=== PATIENT | female | born 1930 | race Two or more races ===

== ENCOUNTER 2017-06-20 10:42 | Observation (INO) | payer MEDICARE ==
[~2017-06-20] VITALS: Ht 157.5 cm; Wt 71.2 kg
[2017-06-20] MEDS ORDERED: CLONIDINE HCL 0.1 MG TAB PO ONE (11:45)
[2017-06-20] MEDS ORDERED: ONDANSETRON HCL 4 MG ORAL DISINTEGRATING TAB PO ONE ×2 (11:45)
--- NOTE | 2017-06-20 13:00 | Diagnostic Imaging Report ---
EXAMINATION: CT of the face HISTORY: Chronic sinusitis unresponsive to antibiotics COMPARISON: None available TECHNIQUE: Multidetector helical axial images were acquired through the face without contrast and were reconstructed in bone and soft tissue algorithms. Images were viewed in multiplanar format. FINDINGS: Bones: Mild degenerative changes of the bilateral TMJs. Facial soft tissues: Unremarkable. Paranasal sinuses and drainage pathways: The frontal, ethmoidal, sphenoid and maxillary sinuses are clear. The ostiomeatal units, fronto-nasal and spheno-ethmoidal recesses are clear. Orbits contents: Unremarkable. Nasal septum: Midline. Anatomic variations: No significant anatomic variations. Dentition: No acute abnormality of the visualized teeth. IMPRESSION: The paranasal sinuses and drainage pathways are clear. No evidence of sinusitis. Signed by: Dr. Mnoserrat Layne M.D. on 06/20/2017 12:57 PM
[2017-06-20 13:01] LABS: BASOPHILS # (AUTO) 0.1 (0.0-0.1); BASOPHILS % 0.7 % (0.0-1.0); EOSINOPHILS % 0.1 % (0.0-6.0); HEMATOCRIT 43.4 % (34.2-44.1); HEMOGLOBIN 13.7 g/dL (12.0-16.0); MEAN CORPUSCULAR HEMOGLOBIN 27.6 pg (28-32); MEAN CORPUSCULAR HGB CONC 31.6 g/dL (31-35); MEAN CORPUSCULAR VOLUME 87.5 fL (81-99); MONOCYTES # (AUTO) 0.2 (0.2-0.8); MONOCYTES % 2.2 % (4.4-11.3); NEUTROPHILS # (AUTO) 7.2 (2.1-6.9); NEUTROPHILS % 84.4 % (38.7-80.0); PLATELET COUNT 93 x10e3/uL (140-360); RED BLOOD COUNT 4.96 x10e6/uL (3.6-5.1); RED CELL DISTRIBUTION WIDTH 15.1 % (11.7-14.4)
[2017-06-20 13:14] LABS: ALANINE AMINOTRANSFERASE 11 IU/L (0-55); ALBUMIN/GLOBULIN RATIO 0.9 (0.8-2.0); ALKALINE PHOSPHATASE 100 IU/L (40-150); ANION GAP 17.7 mmol/L (8-16); BLOOD UREA NITROGEN 12 mg/dL (7-26); BUN/CREATININE RATIO 14 (6-25); CALCIUM 9.5 mg/dL (8.4-10.2); CARBON DIOXIDE 23 mmol/L (22-29); CHLORIDE 103 mmol/L (98-107); CREATININE, SERUM 0.85 mg/dL (0.57-1.11); EST GLOMERULAR FILTRATION RATE > 60 ML/MIN (60-); GLUCOSE 128 mg/dL (74-118); POTASSIUM 4.7 mmol/L (3.5-5.1); SODIUM 139 mmol/L (136-145)
[2017-06-20] MEDS ORDERED: FAMOTIDINE 20 MG/2 ML VIAL IV STA (13:36)
[2017-06-20] MEDS ORDERED: SODIUM CHLORIDE 0.9% 1000ML 1,000 ML IV STA (13:36)
[2017-06-20] MEDS: CLONIDINE HCL 0.1 MG TAB PO ONE ×2 (14:07→15:35)
[2017-06-20 14:51] LABS: BILIRUBIN,URINE NEGATIVE (NEGATIVE); CLARITY,URINE CLEAR (CLEAR); COLOR,URINE YELLOW (YELLOW); KETONES,URINE 2+ (NEGATIVE); LEUKOCYTE ESTERASE ,URINE NEGATIVE (NEGATIVE); NITRITE,URINE NEGATIVE (NEGATIVE); PROTEIN,URINE DIPSTICK 2+ (NEGATIVE); URINE UROBILINOGEN 0.2 mg/dL (0.2 - 1)
[2017-06-20 14:56] LABS: EPITHELIAL CELLS,URINE FEW /LPF
[2017-06-20 14:57] LABS: MUCUS,URINE MODERATE (RARE)
--- NOTE | 2017-06-20 15:03 | Diagnostic Imaging Report ---
PROCEDURE:X-RAY ABDOMEN, ACUTE SERIES COMPARISON:None. INDICATIONS:VOMITING FINDINGS: BOWEL GAS PATTERN:Non-specific bowel gas pattern. Moderate volume of stool within descending colon. FREE AIR:None. CALCIFICATIONS:Vascular calcifications.. LUNGS:Mild diffuse coarsening of the pulmonary interstitium bilaterally. Mild prominence of the central pulmonary vasculature bilaterally. MEDIASTINUM:Median sternotomy wires. The cardiac silhouette is moderately enlarged. PLEURA:No pleural effusion or pneumothorax. OTHER:Degenerative changes of the thoracolumbar spine. The vascular calcifications. CONCLUSION: Nonspecific, nonobstructive bowel gas pattern. Mild pulmonary venous congestion. Govind Yao M.D. Dictated by: Govind Yao M.D. on 06/20/2017 at 15:03 Electronically approved by: Govind Yao M.D. on 06/20/2017 at 15:03
[2017-06-20] MEDS ORDERED: SODIUM CHLORIDE FLUSH 10 ML SYR INJ PRN (16:45)
[2017-06-20] MEDS ORDERED: HYDRALAZINE HCL 20 MG/ML VIAL IV PRN (16:45)
[2017-06-20] MEDS ORDERED: ONDANSETRON HCL INJ 2 MG/ML VIAL IV PRN (16:45)
--- OUTSIDE RECORDS SUMMARY | 2017-06-20 17:04 | XMS REPORT ---
Author [facility] Address Unknown Phone Unavailable Care Team Providers Care Mine Safety Manager Name Role Phone CAROLINA LE Unavailable Unavailable Problems This patient has no known problems. Allergies, Adverse Reactions, Alerts This patient has no known allergies or adverse reactions. Medications This patient has no known medications. Results Test Description Test Time Test Comments Text Results Atomic Results Result Comments ABDOMEN ACUTE SERIES W/PA CXR [place] [address] Patient Name: YOHAN LESTER MR #: [id number] : 1930 Age/Sex: 87/F Req #: [id number] Adm Physician: Ordered by: CAROLINA LE MD Report #: [id number] Location: ER Room/Bed: Procedure: [id number] DX/ABDOMEN ACUTE SERIES W/PA CXR Exam Date: 06/20/17 Exam Time: 1440 REPORT STATUS: Signed PROCEDURE : X-RAY ABDOMEN, ACUTE SERIES COMPARISON: None. INDICATIONS: VOMITING FINDINGS: BOWEL GAS PATTERN: Non-specific bowel gas pattern. Moderate volume of stool within descending colon. FREE AIR: None. CALCIFICATIONS: Vascular calcifications.. LUNGS: Mild diffuse coarsening of the pulmonary interstitium bilaterally. Mild prominence of the central pulmonary vasculature bilaterally. MEDIASTINUM: Median sternotomy wires. The cardiac silhouette is moderately enlarged. PLEURA: No pleural effusion or pneumothorax. OTHER: Degenerative changes of the thoracolumbar spine. The vascular calcifications. CONCLUSION: Nonspecific, nonobstructive bowel gas pattern. Mild pulmonary venous congestion. Govind Selby M.D. Dictated by: Govind Selby M.D. on 06/20/2017 at 15:03 Electronically approved by : Govind Selby M.D. on 06/20/2017 at 15:03 Dictated By: GENNARO SELBY MD, MD 1503 COPY TO: CAROLINA LE MD CT MAXIO FAC/PARANAS WO [place] [address] Patient Name: YOHAN LESTER MR #: [id number] : 1930 Age/Sex: 87/F Req #: [id number] Adm Physician: Ordered by: CAROLINA LE MD Report #: [id number] Location: ER Room/Bed: Procedure: [id number] CT/CT MAXIO FAC/PARANAS WO Exam Date: 06/20/17 Exam Time: 1150 REPORT STATUS: Signed EXAMINATION: CT of the face HISTORY: Chronic sinusitis unresponsive to antibiotics COMPARISON: None available TECHNIQUE: Multidetector helical axial images were acquired through the face without contrast and were reconstructed in bone and soft tissue algorithms. Images were viewed in multiplanar format. FINDINGS: Bones: Mild degenerative changes of the bilateral TMJs. Facial soft tissues: Unremarkable. Paranasal sinuses and drainage pathways: The frontal, ethmoidal, sphenoid and maxillary sinuses are clear. The ostiomeatal units, fronto-nasal and spheno-ethmoidal recesses are clear. Orbits contents: Unremarkable. Nasal septum: Midline. Anatomic variations: No significant anatomic variations. Dentition: No acute abnormality of the visualized teeth. IMPRESSION : The paranasal sinuses and drainage pathways are clear. No evidence of sinusitis. Signed by: Dr. Baldo Layne M.D. on 06/20/2017 12:57 PM Dictated By: BALDO LAYNE MD [id number] COPY TO: CAROLINA LE MD
[2017-06-20 18:08] VITALS: BP 164/81
[2017-06-20 19:00] VITALS: BP 164/81
[2017-06-20] MEDS ORDERED: MELOXICAM7.5 MG PO (19:00)
[2017-06-20] MEDS ORDERED: OMEPRAZOLE40 MG (19:00)
[2017-06-20] MEDS ORDERED: CRESTOR10 MG (19:00)
[2017-06-20] MEDS ORDERED: PENTOXIFYLLINE400 MG PO (19:00)
[2017-06-20] MEDS ORDERED: LATANOPROST2.5 ML OP (19:00)
[2017-06-20] MEDS ORDERED: METOPROLOL SUCC25 MG (19:00)
[2017-06-20 19:04] VITALS: BP 164/81
[2017-06-20 20:00] VITALS: BP 192/91
[2017-06-21] VITALS (9 sets, daily range): BP systolic 122–181; BP diastolic 42–81
[2017-06-21 05:58] LABS: BASOPHILS # (AUTO) 0.1 (0.0-0.1); BASOPHILS % 0.7 % (0.0-1.0); EOSINOPHILS # (AUTO) 0.1 (0.0-0.4); EOSINOPHILS % 1.5 % (0.0-6.0); HEMATOCRIT 34.7 % (34.2-44.1); LYMPHOCYTES # (AUTO) 2.7 (1.0-3.2); LYMPHOCYTES % 37.8 % (18.0-39.1); MEAN CORPUSCULAR HEMOGLOBIN 27.8 pg (28-32); MEAN CORPUSCULAR HGB CONC 31.7 g/dL (31-35); MEAN CORPUSCULAR VOLUME 87.6 fL (81-99); MONOCYTES # (AUTO) 0.6 (0.2-0.8); MONOCYTES % 8.8 % (4.4-11.3); NEUTROPHILS # (AUTO) 3.6 (2.1-6.9); NEUTROPHILS % 50.9 % (38.7-80.0); PLATELET COUNT 171 x10e3/uL (140-360); RED BLOOD COUNT 3.96 x10e6/uL (3.6-5.1); RED CELL DISTRIBUTION WIDTH 14.9 % (11.7-14.4)
[2017-06-21 06:18] LABS: ANION GAP 11.5 mmol/L (8-16); BLOOD UREA NITROGEN 12 mg/dL (7-26); BUN/CREATININE RATIO 15 (6-25); CALCIUM 8.7 mg/dL (8.4-10.2); CARBON DIOXIDE 25 mmol/L (22-29); CHLORIDE 107 mmol/L (98-107); CREATININE, SERUM 0.81 mg/dL (0.57-1.11); EST GLOMERULAR FILTRATION RATE > 60 ML/MIN (60-); GLUCOSE 83 mg/dL (74-118); POTASSIUM 3.5 mmol/L (3.5-5.1); SODIUM 140 mmol/L (136-145)
[2017-06-21 11:57] LABS: CHOL/HDL RATIO 2.5 (3.0-3.6)
[2017-06-21] MEDS ORDERED: METOPROLOL SUCCINATE 25 MG TAB XL PO SCH (12:00)
--- NOTE | 2017-06-21 14:14 | History and Physical ---
PRIMARY CARE PHYSICIAN: Dr. Partida. CHIEF COMPLAINT: Elevated blood pressure. HISTORY OF PRESENT ILLNESS: This is an 87-year-old woman with a history of hypertension who also had upper respiratory infection problem/sinus discomfort, has been seeing her primary care doctor. Now when she went to see her doctor, her blood pressure was elevated. Her blood pressure was above 200. She was sent to the hospital for management. Here, patient's blood pressure was 217/98 and she is admitted for further evaluation and management. PAST MEDICAL HISTORY: Hypertension, sinusitis, hyperlipidemia, and GERD. PAST SURGICAL HISTORY: Unknown. ALLERGIES: PER ELECTRONIC MEDICAL RECORDS. FAMILY HISTORY/SOCIAL HISTORY: The patient is . She has 2 children. No alcohol, illicits, or cigarettes. MEDICATIONS: Per electronic medical records. REVIEW OF SYSTEMS: Denies any dizziness or chest pain. Denies any shortness of breath. PHYSICAL EXAMINATION VITAL SIGNS: Reviewed. GENERAL: A tired-appearing woman, resting in bed. HEENT: Anicteric. Pupils reactive to light. No oral lesions. CARDIOVASCULAR: Normal S1 and S2. LUNGS: Moderate breath sounds. ABDOMEN: Soft, nontender, and nondistended. EXTREMITIES: No edema or calf tenderness. NEUROLOGIC: Alert and oriented x 3. She moves all extremities. She has no apparent deficits. SKIN: Dry. PSYCHIATRIC: Normal affect. LABS: Reviewed. MEDICATIONS: Reviewed. ASSESSMENT AND PLAN: An 87-year-old woman with; 1. Hypertensive urgency. I will titrate her beta-brayan by doubling the dose. 2. Overweight state. We will obtain a lipid panel. Glucose levels appear normal. 3. Gastroesophageal reflux disease. Continue PPI. 4. Hyperlipidemia. Continue statins. Check lipid panel. 5. Prophylaxis. We will use SCDs. 6. Disposition. Control blood pressure overnight and plan to discharge home tomorrow. Job#: [id number] SAK
[2017-06-21] MEDS: PENTOXIFYLLINE 400 MG TAB CR PO SCH (16:45)
[2017-06-21] MEDS ORDERED: ACETAMINOPHEN 325 MG TAB PO PRN (19:15)
[2017-06-21] MEDS ORDERED: SIMVASTATIN 20 MG TAB PO SCH (21:00)
[2017-06-21] MEDS ORDERED: LATANOPROST(OPTH) 2.5 ML BTL OP SCH (21:00)
[2017-06-22] VITALS: BP 141/66
[2017-06-22 04:00] VITALS: BP 145/72
[2017-06-22 05:47] LABS: BASOPHILS # (AUTO) 0.1 (0.0-0.1); BASOPHILS % 0.7 % (0.0-1.0); EOSINOPHILS # (AUTO) 0.1 (0.0-0.4); EOSINOPHILS % 1.1 % (0.0-6.0); HEMATOCRIT 35.3 % (34.2-44.1); HEMOGLOBIN 11.2 g/dL (12.0-16.0); LYMPHOCYTES # (AUTO) 2.9 (1.0-3.2); LYMPHOCYTES % 41.2 % (18.0-39.1); MEAN CORPUSCULAR HEMOGLOBIN 27.7 pg (28-32); MEAN CORPUSCULAR HGB CONC 31.7 g/dL (31-35); MEAN CORPUSCULAR VOLUME 87.4 fL (81-99); MONOCYTES # (AUTO) 0.7 (0.2-0.8); MONOCYTES % 9.5 % (4.4-11.3); NEUTROPHILS # (AUTO) 3.3 (2.1-6.9); NEUTROPHILS % 47.2 % (38.7-80.0); PLATELET COUNT 173 x10e3/uL (140-360); RED BLOOD COUNT 4.04 x10e6/uL (3.6-5.1); RED CELL DISTRIBUTION WIDTH 14.9 % (11.7-14.4)
[2017-06-22 06:12] LABS: ANION GAP 10.6 mmol/L (8-16); BLOOD UREA NITROGEN 18 mg/dL (7-26); BUN/CREATININE RATIO 21 (6-25); CALCIUM 8.5 mg/dL (8.4-10.2); CARBON DIOXIDE 25 mmol/L (22-29); CHLORIDE 105 mmol/L (98-107); CREATININE, SERUM 0.84 mg/dL (0.57-1.11); EST GLOMERULAR FILTRATION RATE > 60 ML/MIN (60-); GLUCOSE 93 mg/dL (74-118); POTASSIUM 3.6 mmol/L (3.5-5.1); SODIUM 137 mmol/L (136-145)
[2017-06-22 07:41] VITALS: BP 147/69
[2017-06-22] MEDS ORDERED: PANTOPRAZOLE SOD 40 MG TABEC PO SCH (09:00)
[2017-06-22] MEDS ORDERED: METOPROLOL SUCCINATE 50 MG TAB XL PO SCH (09:00)
[2017-06-22] MEDS: PENTOXIFYLLINE 400 MG TAB CR PO SCH (09:27)
[2017-06-22] MEDS ORDERED: NIFEDIPINE ER30 M1 PO (10:35)
[2017-06-22] MEDS ORDERED: TOPROL XL50 MG PO (10:35)
[2017-06-22] MEDS ORDERED: HYDRALAZINE HCL25 MG PO (10:35)
[2017-06-22 12:13] VITALS: BP 169/73
--- NOTE | 2017-06-22 14:13 | Discharge Summary ---
PRINCIPAL DIAGNOSES 1. Hypertensive emergency with headache. 2. Overweight state. 3. Gastroesophageal reflux disease. 4. Hyperlipidemia. SECONDARY DIAGNOSIS: Hypertension. CHIEF COMPLAINT: Elevated blood pressure and headache. HISTORY OF PRESENT ILLNESS: An 87-year-old woman admitted with elevated blood pressure and headache. Refer to the H and P for further details. HOSPITAL COURSE: The patient was found to have hypertensive emergency and treated with beta brayan and calcium channel brayan and hydralazine. The patient with overweight state. She was evaluated with a lipid panel. She had GERD treated with PPI and hyperlipidemia treated with statin medications. LDL was 77 and triglycerides 113. Troponin is negative. The patient is doing better and currently appropriate for discharge and follow up. DISCHARGE MEDICATIONS: Per electronic medical records. FOLLOWUP: Primary care doctor in 1 week. CONDITION ON DISCHARGE: Stable and improving. DISCHARGE LOCATION: Home. KELLY MELGOZA MD Job#: [id number] [place]
[2017-06-22] MEDS ORDERED: HYDRALAZINE HCL 25 MG TAB PO SCH (15:00)
[2017-06-22 15:57] VITALS: BP 159/91
--- NOTE | 2017-06-22 16:20 | Discharge Summary ---
PRINCIPAL DIAGNOSES 1. Hypertensive urgency. 2. Overweight state. 3. Gastroesophageal reflux disease. 4. Hyperlipidemia. SECONDARY DIAGNOSIS: Hypertension. CHIEF COMPLAINT: Elevate blood pressure. HISTORY OF PRESENT ILLNESS: An 87-year-old woman developing elevated blood pressure. Please refer to the H\T\P for further details. HOSPITAL COURSE: The patient was found to have hypertensive urgency, treated with beta brayan, also added calcium channel brayan and hydralazine. Patient was monitored. Blood pressure . Systolic blood pressure less than 120. Will hold the nifedipine. Patient also had overweight state. Lipid panel was obtained. LDL was 77, triglyceride 133. Patient is doing better, currently appropriate for discharge. DISCHARGE MEDICATIONS: Per electronic medical record. FOLLOWUP: Primary care doctor in 1 week. CONDITION ON DISCHARGE: Stable and improving. DISCHARGE LOCATION: Home. KELLY MELGOZA MD Job#: [id number] [place]
[2017-06-23] MEDS ORDERED: NIFEDIPINE CR 30 MG TAB PO SCH (09:00)
== END 2017-06-22 16:09 | disposition home or self-care (01) ==
LOC: ER 10:42 → ERHOLD 17:02 → IMCU 17:05
PROVIDERS: ADMIT Internal Medicine; ATTEND Internal Medicine
DX: I16.1 Hypertensive emergency (principal); E66.3 Overweight; K21.9 Gastro-esophageal reflux disease without esophagitis; E78.5 Hyperlipidemia, unspecified
CPT/HCPCS: 36415 ×3; 70486; 74022; 80048 ×2; 80053; 80061; 81001; 84484; 85025 ×3; 87086; 99284; G0378 ×3; J0360; J2405; J7030